=== PATIENT | male | born 1980 | race Two or more races ===

== ENCOUNTER 2023-09-06 17:55 | Emergency (ER) | payer OTHER ==
[2023-09-06 18:18] VITALS: BP 126/81; PULSE 72; RESP 20; TEMP 98.2; BMI 33.4
[2023-09-06] MEDS ORDERED: IBUPROFEN 400 MG TABLET (FP) PO ONE (18:24)
[2023-09-06] MEDS: IBUPROFEN 400 MG TABLET (FP) PO ONE (18:27)
== END 2023-09-06 19:19 | disposition home or self-care (01) ==
LOC: FER 17:55
DX: M54.2 Cervicalgia (principal); M25.511 Pain in right shoulder; M25.531 Pain in right wrist; V49.40XA Driver injured in collision with unspecified motor vehicles in traffic accident, initial encounter
CPT/HCPCS: 73030-TC-RT-FY; 73110-TC-RT-FY; 99284-25